=== PATIENT | female | born 1990 | race Caucasian/White ===

== ENCOUNTER 2017-02-25 15:44 | Outpatient (CLI) | payer OTHER ==
[~2017-02-25] VITALS: Ht 162.6 cm; Wt 70.5 kg
[2017-02-25 16:26] VITALS: BP 122/80
[2017-02-25 16:34] LABS: HEMOGLOBIN 13.5 g/dL (11.7-16.4)
[2017-02-25 16:45] LABS: ASPARTATE AMINO TRANSFERASE 22 U/L (15-37); BLOOD UREA NITROGEN 10 mg/dL (7-18)
== END 2017-02-25 17:45 | disposition home or self-care (01) ==
LOC: LDOP 15:44
PROVIDERS: ATTEND Specialist
DX: O26.893 Other specified pregnancy related conditions, third trimester (principal); R51 Headache; O13.3 Gestational [pregnancy-induced] hypertension without significant proteinuria, third trimester; O99.513 Diseases of the respiratory system complicating pregnancy, third trimester; J45.909 Unspecified asthma, uncomplicated; Z3A.31 31 weeks gestation of pregnancy
CPT/HCPCS: 36415; 59025; 80053; 81003; 82248; 82570; 84156; 84550; 85025; 99211; G0463

== ENCOUNTER 2017-04-14 17:17 | Inpatient (IN) | payer OTHER ==
[~2017-04-14] VITALS: Ht 157.5 cm; Wt 77.1 kg
[2017-04-14] MEDS: LACTATED RINGERS 1,000 ML IV SCH (02:35)
[2017-04-14] MEDS ORDERED: OXYTOCIN 30U/ 0.9% NaCL 500ML 500 ML IV ONE (18:22)
[2017-04-14] MEDS ORDERED: OXYTOCIN 30U/ 0.9% NaCL 500ML 500 ML IV PRN (18:22)
[2017-04-14] MEDS ORDERED: FENTANYL PF 100 MCG/2ML IV PRN (18:30)
[2017-04-14] MEDS ORDERED: ONDANSETRON 2MG/ML, 2ML IVPush PRN (18:30)
[2017-04-14 19:02] LABS: ASPARTATE AMINO TRANSFERASE 21 U/L (15-37); BLOOD UREA NITROGEN 7 mg/dL (7-18)
[2017-04-14] MEDS ORDERED: MISOPROSTOL 25 MCG TABLET ONE (19:20)
[2017-04-14] MEDS ORDERED: MISOPROSTOL 25 MCG TABLET VG PRN (20:00)
[2017-04-15] MEDS ORDERED: LIDOCAINE 1%, 20ML ONE (02:04)
[2017-04-15] MEDS ORDERED: MISOPROSTOL 200 MCG TABLET ONE (02:04)
[2017-04-15] MEDS ORDERED: OXYTOCIN 30U/ 0.9% NaCL 500ML 500 ML ONE (02:04)
[2017-04-15] MEDS: LACTATED RINGERS 1,000 ML IV SCH ×2 (02:22→21:00)
[2017-04-15] MEDS: D5%-LACTATED RINGERS 1,000 ML IV SCH ×4 (02:22→22:02)
[2017-04-15] MEDS ORDERED: NEWBORN KIT ONE (11:04)
[2017-04-15] MEDS ORDERED: FENTANYL PF 100 MCG/2ML ONE ×3 (15:43→18:23)
[2017-04-15] MEDS: FENTANYL PF 100 MCG/2ML IVPush PRN ×2 (16:03→17:40)
[2017-04-15] MEDS ORDERED: FENTANYL/BUPIV./NS/PF 250 ML EPIDCONT ONE (18:23)
[2017-04-15] MEDS ORDERED: BUPIVACAINE 0.25% ONE (18:23)
[2017-04-15] MEDS ORDERED: ONDANSETRON 2MG/ML, 2ML ONE (19:55)
[2017-04-16] MEDS: LACTATED RINGERS 1,000 ML IV SCH ×7 (01:38→18:35)
[2017-04-16] MEDS: D5%-LACTATED RINGERS 1,000 ML IV SCH ×3 (02:22→18:22)
[2017-04-16] MEDS ORDERED: FENTANYL/BUPIV./NS/PF 250 ML EPIDCONT SCH (02:35)
[2017-04-16] MEDS ORDERED: LACTATED RINGERS 1,000 ML IVBOLUS PRN (03:00)
[2017-04-16] MEDS: FENTANYL PF 100 MCG/2ML IVPush PRN ×4 (06:11→09:16)
[2017-04-16] MEDS ORDERED: FENTANYL PF 100 MCG/2ML ONE (06:11)
[2017-04-16] MEDS ORDERED: OXYTOCIN 30U/ 0.9% NaCL 500ML 500 ML ONE (06:28)
[2017-04-16] MEDS: OXYTOCIN 30U/ 0.9% NaCL 500ML 500 ML IV SCH ×2 (07:09→17:09)
[2017-04-16] MEDS ORDERED: HYDROcodone/APAP 5/325 TABLET PO PRN ×2 (07:30)
[2017-04-16] MEDS ORDERED: CALCIUM CARBONATE 500 MG TAB.CHEW PO PRN (07:30)
[2017-04-16] MEDS ORDERED: CARBOPROST TROMETHAMINE 250 MCG/ML, 1ML IM PRN (07:30)
[2017-04-16] MEDS ORDERED: ONDANSETRON 2MG/ML, 2ML IV PRN (07:30)
[2017-04-16] MEDS ORDERED: MISOPROSTOL 200 MCG TABLET PO PRN (07:30)
[2017-04-16 09:05] VITALS: BP 116/76
[2017-04-16] MEDS: PRENATAL VIT/IRON/FA 1 EACH TABLET PO SCH (09:08)
[2017-04-16] MEDS: DOCUSATE 100 MG CAPSULE PO PRN ×2 (09:08→23:04)
[2017-04-16] MEDS: IBUPROFEN 600 MG TABLET PO PRN ×3 (09:08→23:04)
[2017-04-16 12:40] VITALS: BP 116/73
[2017-04-16 16:20] VITALS: BP 132/90
[2017-04-16 20:15] VITALS: BP 130/89
[2017-04-16 23:46] VITALS: BP 117/84
[2017-04-17] MEDS: D5%-LACTATED RINGERS 1,000 ML IV SCH ×3 (02:22→18:22)
[2017-04-17] MEDS: LACTATED RINGERS 1,000 ML IV SCH ×6 (02:22→18:35)
[2017-04-17] MEDS: OXYTOCIN 30U/ 0.9% NaCL 500ML 500 ML IV SCH ×3 (03:09→23:09)
[2017-04-17] MEDS: DOCUSATE 100 MG CAPSULE PO PRN (08:16)
[2017-04-17] MEDS: PRENATAL VIT/IRON/FA 1 EACH TABLET PO SCH (08:16)
[2017-04-17] MEDS: IBUPROFEN 600 MG TABLET PO PRN ×2 (08:16→19:06)
[2017-04-17 08:40] VITALS: BP 124/85
[2017-04-17 20:00] VITALS: BP 132/86
[2017-04-18] MEDS ORDERED: PREN-13 PO (00:20)
[2017-04-18] MEDS ORDERED: DOCU-30 PO (00:21)
[2017-04-18] MEDS ORDERED: IBUP-1222 PO (00:24)
[2017-04-18 06:55] VITALS: BP 134/89
[2017-04-18] MEDS: IBUPROFEN 600 MG TABLET PO PRN ×2 (08:58→15:07)
[2017-04-18] MEDS: DOCUSATE 100 MG CAPSULE PO PRN (08:58)
[2017-04-18] MEDS: PRENATAL VIT/IRON/FA 1 EACH TABLET PO SCH (09:00)
[2017-04-18] MEDS: OXYTOCIN 30U/ 0.9% NaCL 500ML 500 ML IV SCH (09:09)
== END 2017-04-18 17:05 | disposition home or self-care (01) | DRG 775 ==
LOC: LDIP 17:17 → 2NW 04-16 08:32
PROVIDERS: ADMIT Obstetrics & Gynecology; ATTEND Obstetrics & Gynecology
PROC: 10D07Z6 Extraction of Products of Conception, Vacuum, Via Natural or Artificial Opening (ICD-10-PCS; principal; 2017-04-16)
PROC: 10907ZC Drainage of Amniotic Fluid, Therapeutic from Products of Conception, Via Natural or Artificial Opening (ICD-10-PCS; 2017-04-16)
PROC: 3E033VJ Introduction of Other Hormone into Peripheral Vein, Percutaneous Approach (ICD-10-PCS; 2017-04-16)
PROC: 3E0P7GC Introduction of Other Therapeutic Substance into Female Reproductive, Via Natural or Artificial Opening (ICD-10-PCS; 2017-04-16)
PROC: 0HQ9XZZ Repair Perineum Skin, External Approach (ICD-10-PCS; 2017-04-16)
PROC: 00HU33Z Insertion of Infusion Device into Spinal Canal, Percutaneous Approach (ICD-10-PCS; 2017-04-16)
PROC: 3E0R3CZ (ICD-10-PCS; 2017-04-16)
DX: O14.94 Unspecified pre-eclampsia, complicating childbirth (principal); O99.354 Diseases of the nervous system complicating childbirth; O99.62 Diseases of the digestive system complicating childbirth; K58.9 Irritable bowel syndrome, unspecified; F32.9 Major depressive disorder, single episode, unspecified; O69.81X0 Labor and delivery complicated by cord around neck, without compression, not applicable or unspecified; F41.9 Anxiety disorder, unspecified; O99.344 Other mental disorders complicating childbirth; G43.109 Migraine with aura, not intractable, without status migrainosus; O63.1 Prolonged second stage (of labor); O70.0 First degree perineal laceration during delivery; O75.81 Maternal exhaustion complicating labor and delivery; O76 Abnormality in fetal heart rate and rhythm complicating labor and delivery; Z3A.38 38 weeks gestation of pregnancy; Z37.0 Single live birth; Z87.440 Personal history of urinary (tract) infections
CPT/HCPCS: 36415; 80053; 81003; 82248; 82570; 82803; 84156; 84550; 85025; 86850; 86900; J2405; J3010; J2590; J7120; J7121

== ENCOUNTER → 2017-11-04 | Outpatient (CLI) | payer OTHER ==
[~2017-11-04] MED LIST: DOCU-131 PO; IBUP-1222 PO; PREN-13 PO
[2017-11-04 08:41] LABS: HEMATOCRIT 42.7 % (34.6-47.8); HEMOGLOBIN 14.6 g/dL (11.7-16.4); WHITE BLOOD COUNT 6.3 x10^3/uL (3.4-10)
[2017-11-04 08:53] LABS: ASPARTATE AMINO TRANSFERASE 13 U/L (15-37); BLOOD UREA NITROGEN 10 mg/dL (7-18)
== END | disposition home or self-care (01) ==
LOC: LAB 08:28
PROVIDERS: ATTEND Nurse Practitioner Family
DX: Z01.419 Encounter for gynecological examination (general) (routine) without abnormal findings (principal); R79.89 Other specified abnormal findings of blood chemistry
CPT/HCPCS: 36415; 80053; 80061; 82306; 84439; 84443; 85025

== ENCOUNTER → 2017-11-18 | Outpatient (CLI) | payer OTHER ==
[2017-11-18 12:35] LABS: % IRON SATURATION 43 % (20-55); IRON LEVEL 126 mcg/dL (50-170); TOTAL IRON BINDING CAPACITY 294 mcg/dL (250-450)
[2017-11-18 13:12] LABS: FOLATE LEVEL > 20.0 ng/mL (3.1-17.5)
== END ==
LOC: LAB 12:13
PROVIDERS: ATTEND Nurse Practitioner Family
DX: R53.83 Other fatigue (principal)
CPT/HCPCS: 36415; 82607; 82728; 82746; 83540; 83550

== ENCOUNTER → 2019-04-25 | Outpatient (CLI) | payer OTHER ==
[2019-04-25 09:26] LABS: BASOPHILS # (AUTO) 0.05 x10^3/uL (0-0.1); BASOPHILS % (AUTO) 1 % (0-1); EOSINOPHILS # (AUTO) 0.11 x10^3/uL (0-0.4); EOSINOPHILS % (AUTO) 2 % (1-7); LYMPHOCYTES # (AUTO) 1.64 x10^3/uL (1-3.4); LYMPHOCYTES % (AUTO) 37 % (22-44); MD NO; MEAN CORPUSCULAR HGB CONC 33.5 g/dL (32.4-35.8); MEAN CORPUSCULAR VOLUME 98.7 fL (80-100); MONOCYTES # (AUTO) 0.32 x10^3/uL (0.2-0.8); MONOCYTES % (AUTO) 7 % (2-9); NEUTROPHILS # (AUTO) 2.37 x10^3/uL (1.8-6.8); NEUTROPHILS % (AUTO) 53 % (42-75); PLATELET COUNT 253 x10^3/uL (130-400); RED BLOOD COUNT 4.23 x10^6/uL (3.82-5.3); RED CELL DISTRIBUTION WIDTH 12.8 % (9.6-15.2)
[2019-04-25 10:04] LABS: CHOL/HDL RATIO 2.4; FOLATE LEVEL 16.5 ng/mL (3.1-17.5); FREE T4 (FREE THYROXINE) 1.17 ng/dL (0.76-1.46); LDL/HDL RATIO 1.2 (0.5-3.0); THYROID STIMULATING HORMONE 1.7 mIU/L (0.358-3.740)
== END | disposition home or self-care (01) ==
LOC: LAB 09:06
PROVIDERS: ATTEND Nurse Practitioner Family
DX: R53.83 Other fatigue (principal); R03.0 Elevated blood-pressure reading, without diagnosis of hypertension
CPT/HCPCS: 36415; 80061; 82306; 82607; 82728; 82746; 83540; 83550; 84439; 84443; 84481; 85025

== ENCOUNTER → 2019-05-29 | Outpatient (CLI) | payer OTHER ==
[2019-05-29 09:23] LABS: BASOPHILS # (AUTO) 0.06 x10^3/uL (0-0.1); BASOPHILS % (AUTO) 1 % (0-1); EOSINOPHILS # (AUTO) 0.22 x10^3/uL (0-0.4); EOSINOPHILS % (AUTO) 3 % (1-7); LYMPHOCYTES # (AUTO) 1.66 x10^3/uL (1-3.4); LYMPHOCYTES % (AUTO) 25 % (22-44); MD NO; MEAN CORPUSCULAR HEMOGLOBIN 33.3 pg (27.0-34.8); MEAN CORPUSCULAR HGB CONC 33.4 g/dL (32.4-35.8); MEAN CORPUSCULAR VOLUME 99.6 fL (80-100); MEAN PLATELET VOLUME 7.9 fL (7.4-10.4); MONOCYTES # (AUTO) 0.49 x10^3/uL (0.2-0.8); MONOCYTES % (AUTO) 7 % (2-9); NEUTROPHILS # (AUTO) 4.21 x10^3/uL (1.8-6.8); NEUTROPHILS % (AUTO) 64 % (42-75); PLATELET COUNT 280 x10^3/uL (130-400); RED BLOOD COUNT 4.38 x10^6/uL (3.82-5.3)
== END | disposition home or self-care (01) ==
LOC: LAB 09:09
PROVIDERS: ATTEND Nurse Practitioner Family
DX: R79.0 Abnormal level of blood mineral (principal)
CPT/HCPCS: 36415; 81256; 82728; 83540; 83550; 85025